=== PATIENT | male | born 1980 | race Caucasian/White ===

== ENCOUNTER 2017-01-28 22:04 | Emergency (ER) | payer OTHER ==
[~2017-01-28] VITALS: Ht 177.8 cm; Wt 90.7 kg
[2017-01-28] MEDS ORDERED: LAMOTRIGINE 25 MG TABLET (22:19)
[2017-01-28] MEDS ORDERED: BUPROPION HCL XL 150 MG TABLET (22:19)
[2017-01-28] MEDS ORDERED: CLONIDINE HCL 0.1 MG TABLET (22:19)
[2017-01-28] MEDS ORDERED: GABAPENTIN 300 MG CAPSULE (22:19)
--- NOTE | 2017-01-28 22:26 | NUR ---
Dr. Fuller @ bedside for eval.
[2017-01-28 22:40] VITALS: BP 145/80
--- NOTE | 2017-01-28 22:40 | NUR ---
Patient discharged to home in stable conditon. Written and verbal after care instructions given. Patient verbalizes understanding of instructions. patient left with stable gait, accompanied by girlfriend.
[2017-01-28] MEDS ORDERED: LORAZEPAM 0.5 MG TABLET PO ONE (22:45)
[2017-01-28] MEDS ORDERED: LORAZEPAM 1 MG TABLET ONE (22:48)
== END 2017-01-28 22:42 | disposition home or self-care (01) ==
LOC: ER 22:10
DX: F15.10 Other stimulant abuse, uncomplicated (principal)
CPT/HCPCS: A4663

== ENCOUNTER 2017-02-01 21:48 | Emergency (ER) | payer OTHER ==
[~2017-02-01] VITALS: Ht 180.3 cm; Wt 86.2 kg
[~2017-02-01 21:48] MED LIST: BUPROPION HCL XL 150 MG TABLET; CLONIDINE HCL 0.1 MG TABLET; GABAPENTIN 300 MG CAPSULE; LAMOTRIGINE 25 MG TABLET
--- NOTE | 2017-02-02 00:15 | NUR ---
Pt here for medical clearance so he can go to an off site detox. Pt using meth for the last 6 days. Per friend at bedside pt was restless with auditory and visual hallucinations. At time of assesment pt calm and lethargic. Resp even and unlabored. No obvious signs of distress at this time. Awaiting further eval.
--- NOTE | 2017-02-02 02:12 | NUR ---
Dr. Loomis at bedside for MSE
[2017-02-02] MEDS: SULFAMETH/TRIMETH 800/160 MG TABLET PO ONE (02:31)
[2017-02-02] MEDS: TDAP DIPH,PERTUSS,TET VAC/PF 0.5 ML DISP.SYRIN IM ONE (02:35)
[2017-02-02] MEDS ORDERED: TDAP DIPH,PERTUSS,TET VAC/PF 0.5 ML DISP.SYRIN IM ONE (02:36)
[2017-02-02] MEDS ORDERED: SULFAMETH/TRIMETH 800/160 MG TABLET ONE (02:36)
[2017-02-02 02:48] LABS: BASOPHILS # (AUTO) 0.1 K/uL (0.0-8.0); BASOPHILS % (AUTO) 0.8 % (0.0-2.0); EOSINOPHILS # (AUTO) 0.2 K/uL (0.0-0.7); EOSINOPHILS % (AUTO) 1.5 % (0.0-7.0); HEMATOCRIT 43.5 % (40-50); HEMOGLOBIN 14.4 G/DL (14.0-18.0); LYMPHOCYTES % (AUTO) 22.2 % (20.5-51.5); MEAN CORPUSCULAR HEMOGLOBIN 28.5 UUG (27.0-31.0); MEAN CORPUSCULAR HGB CONC 33 g/dL (32.0-37.0); MEAN CORPUSCULAR VOLUME 86.1 FL (82.0-92.0); MONOCYTES # (AUTO) 0.8 K/UL (0.1-1.30); MONOCYTES % (AUTO) 6.3 % (0.0-11.0); NEUTROPHILS # (AUTO) 9.4 K/UL (1.8-8.9); NEUTROPHILS % (AUTO) 69.2 % (38.5-71.5); PLATELET COUNT (AUTO) 336 K/UL (150-450); RED BLOOD CELL COUNT(AUTO) 5.06 MIL/UL (4.7-6.1); WHITE BLOOD COUNT (AUTO) 13.4 K/UL (4.0-11.2)
[2017-02-02 02:49] LABS: CARBON DIOXIDE 31 mmol/L (21-32); CHLORIDE 103 mmol/L (98-107); CREATININE 0.9 mg/dL (0.6-1.3); GLUCOSE 125 mg/dL (74-106); POTASSIUM 2.9 mmol/L (3.5-5.1); UREA NITROGEN, BLOOD 24 mg/dL (7-18)
[2017-02-02 02:55] LABS: ALANINE AMINOTRANSFERASE 148 U/L (16-63); ALKALINE PHOSPHATASE 97 U/L (50-136); ASPARTATE AMINOTRANSFERASE 104 U/L (15-37); BILIRUBIN,DIRECT 0.4 mg/dL (0.0-0.2); BILIRUBIN,TOTAL 1.6 mg/dL (0.2-1.0); TOTAL PROTEIN, SERUM 8.3 g/dL (6.4-8.2)
[2017-02-02 02:57] LABS: ACETAMINOPHEN < 2.0 ug/mL (10-30)
[2017-02-02 02:58] LABS: ETHANOL < 3 MG/DL (0-0)
[2017-02-02] MEDS: POTASSIUM CHLORIDE 20 MEQ TAB.PRT.SR PO ONE (03:08)
--- NOTE | 2017-02-02 03:13 | NUR ---
Pt stable for discharge per MD. Pt and friend given ACI. Both verbalized understanding of dc instructions. 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
[2017-02-02 03:16] VITALS: BP 106/76
[2017-02-02] MEDS ORDERED: POTASSIUM CHLORIDE 20 MEQ TAB.PRT.SR ONE (03:18)
== END 2017-02-02 03:17 | disposition home or self-care (01) ==
LOC: ER 21:49
DX: F19.951 Other psychoactive substance use, unspecified with psychoactive substance-induced psychotic disorder with hallucinations (principal); A49.02 Methicillin resistant Staphylococcus aureus infection, unspecified site; I10 Essential (primary) hypertension; F41.9 Anxiety disorder, unspecified; F32.9 Major depressive disorder, single episode, unspecified; F10.20 Alcohol dependence, uncomplicated; F17.200 Nicotine dependence, unspecified, uncomplicated; F15.10 Other stimulant abuse, uncomplicated
CPT/HCPCS: 36415; 85025; 90715; A4663; G0480; G0480-TC